=== PATIENT | male | born 1965 | race Hispanic/Latino ===

== ENCOUNTER 2017-06-04 20:47 | Emergency (ER) | payer OTHER ==
--- NOTE | 2017-06-04 21:51 | RAD ---
THREE VIEWS OF THE RIGHT HAND: 06/04/17 COMPARISON: None. HISTORY: Right hand pain after falling from standing with right hand trauma. FINDINGS: Three views of the right hand shows no evidence of acute fracture or dislocation. No degenerative barber nges are seen. No soft tissue swelling is seen. IMPRESSION: No evidence of acute osseous abnormality. POS: [facility]
--- NOTE | 2017-06-04 22:01 | RAD ---
THREE VIEWS LUMBOSACRAL SPINE: 06/04/17 COMPARISON: None. HISTORY: Fall from standing with right lower extremity pain and back pain. FINDINGS: Three views of the lumbosacral spine shows degenerative change at L4-5 and L5-S1 with intervertebral disc space narrowing and small surrounding osteophytes. There are also osteophytes in the mid lumbar spine. The vertebral bodies demonstrate normal height without fracture or subluxation. Posterior face t arthrosis is seen in the lower lumbosacral spine. IMPRESSION: Degenerative changes of the lumbar spine without acute osseous abnormality. POS: [facility]
== END 2017-06-04 22:18 ==
LOC: NAV ERS 20:47
DX: S30.0XXA Contusion of lower back and pelvis, initial encounter (principal); S60.221A Contusion of right hand, initial encounter; M19.90 Unspecified osteoarthritis, unspecified site; W01.0XXA Fall on same level from slipping, tripping and stumbling without subsequent striking against object, initial encounter
CPT/HCPCS: 72100

== ENCOUNTER 2019-10-30 00:25 | Emergency (ER) | payer OTHER ==
[2019-10-30] MEDS ORDERED: Ketorolac Tromethamine 30 MG/ML VIAL ONE (01:01)
[2019-10-30] MEDS ORDERED: Promethazine HCl 25 MG/ML VIAL ONE (01:01)
[2019-10-30] MEDS ORDERED: Sodium Chloride 0.9% 1,000 ML ONE (01:02)
== END 2019-10-30 03:08 ==
LOC: NAV ERS 00:25
DX: R11.2 Nausea with vomiting, unspecified (principal); R51 Headache; M19.90 Unspecified osteoarthritis, unspecified site; Z79.899 Other long term (current) drug therapy
CPT/HCPCS: 96365; 96375; J1885; J2550; J7050